=== PATIENT | male | born 1945 | race Two or more races ===

== ENCOUNTER 2016-07-22 21:35 | Emergency (ER) | payer MEDICARE, OTHER ==
[~2016-07-22] VITALS: Ht 170.2 cm; Wt 63.5 kg
[~2016-07-22 21:35] MED LIST: GABA100C PO; HYDR-507 PO; IBUP-785; NAPR500T PO; TRAM50TA PO
[2016-07-22] MEDS ORDERED: ONDANSETRON ODT 4 MG TAB.RAPDIS SL ONE (22:00)
[2016-07-22] MEDS ORDERED: HYDROCODONE/APAP 5-325MG TABLET PO ONE (22:00)
[2016-07-22] MEDS ORDERED: HYDROCODONE/APAP 5-325MG TABLET ONE (22:05)
[2016-07-22] MEDS ORDERED: ONDANSETRON ODT 4 MG TAB.RAPDIS ONE (22:05)
--- NOTE | 2016-07-22 22:50 | NUR ---
Patient discharged to home in stable conditon with son taking Pt home. Written and verbal after care instructions given. Patient verbalizes understanding of instructions. Walked out of ER wit steady gait
[2016-07-22 22:51] VITALS: BP 128/75
== END 2016-07-22 22:51 | disposition home or self-care (01) ==
LOC: ER 21:38
DX: S40.012A Contusion of left shoulder, initial encounter (principal); S20.211A Contusion of right front wall of thorax, initial encounter; I25.2 Old myocardial infarction; M19.90 Unspecified osteoarthritis, unspecified site; W10.0XXA Fall (on)(from) escalator, initial encounter; Y93.89 Activity, other specified; Y99.8 Other external cause status; Y92.89 Other specified places as the place of occurrence of the external cause
CPT/HCPCS: 71010; 73030; 73060; 93005; 99284; A4663; Q0162

== ENCOUNTER 2017-02-05 23:07 | Emergency (ER) | payer MEDICARE, OTHER ==
[~2017-02-05] VITALS: Ht 162.6 cm; Wt 69.9 kg
[2017-02-05] MEDS ORDERED: HYDROCODON-ACETAMINOPHN 10-325 (23:23)
[2017-02-05] MEDS ORDERED: ROSUVASTATIN CALCIUM 20 MG TAB (23:23)
[2017-02-05] MEDS ORDERED: MELOXICAM 7.5 MG TABLET (23:23)
[2017-02-05] MEDS ORDERED: MAG HYDROX/AL HYDROX/SIMETH 30 ML LIQUID UDC ONE (23:42)
[2017-02-05] MEDS ORDERED: LIDOCAINE VISCUS 2% 15 ML UDC ONE (23:42)
[2017-02-05] MEDS ORDERED: KETOROLAC TROMETHAMINE 30 MG INJ IM ONE (23:45)
[2017-02-05 23:55] LABS: BASOPHILS % (AUTO) 0.8 % (0.0-2.0); EOSINOPHILS # (AUTO) 0.2 K/uL (0.0-0.7); EOSINOPHILS % (AUTO) 3.2 % (0.0-7.0); HEMATOCRIT 40.9 % (40-50); HEMOGLOBIN 13.3 G/DL (14.0-18.0); LYMPHOCYTES # (AUTO) 2.1 K/UL (0.8-4.8); MEAN CORPUSCULAR HEMOGLOBIN 27.5 UUG (27.0-31.0); MEAN CORPUSCULAR HGB CONC 33 g/dL (32.0-37.0); MEAN CORPUSCULAR VOLUME 84.6 FL (82.0-92.0); MONOCYTES # (AUTO) 0.5 K/UL (0.1-1.30); MONOCYTES % (AUTO) 8.8 % (0.0-11.0); NEUTROPHILS # (AUTO) 3.2 K/UL (1.8-8.9); NEUTROPHILS % (AUTO) 53.2 % (38.5-71.5); PLATELET COUNT (AUTO) 216 K/UL (150-450); RED BLOOD CELL COUNT(AUTO) 4.84 MIL/UL (4.7-6.1)
[2017-02-05] MEDS ORDERED: KETOROLAC TROMETHAMINE 30 MG INJ ONE (23:56)
[2017-02-06 00:08] LABS: *BILIRUBIN,URIN NEGATIVE (NEGATIVE); *BLOOD, URINE Trace-intact (NEGATIVE); *CLARITY,URINE CLEAR (CLEAR); *COLOR,URINE YELLOW (YELLOW); *KETONES,URINE NEGATIVE (NEGATIVE); *PROTEIN,URINE NEGATIVE (NEGATIVE); *UROBILINOGEN,URINE 0.2 E.U./dl (NORMAL); LEUKOCYTE ESTERASE ,URINE TRACE (NEGATIVE); NITRITE, URINE NEGATIVE (NEGATIVE); PH,URINE 5.5 (5.0-8.0); UGLUCOSE NEGATIVE (NEGATIVE)
[2017-02-06 00:10] LABS: CREATININE 1.3 mg/dL (0.6-1.3); POTASSIUM 3.5 mmol/L (3.5-5.1)
[2017-02-06 00:24] LABS: BACTERIA,URINE NONE SEEN /HPF (NONE SEEN); MUCUS,URINE FEW /LPF (0-FEW); RBC,URINE 0-3 /HPF (0-3); SQUAMOUS EPITHELIAL CELL,UR FEW /HPF (NONE SEEN); WBC,URINE 0-3 /HPF (0-3)
--- NOTE | 2017-02-06 00:30 | NUR ---
PATIENT STATES PAIN IS BETTER 4/10
--- NOTE | 2017-02-06 01:10 | NUR ---
Patient discharged to home in stable conditon WITH FAMILY TAKING PATIENT HOME. Written and verbal after care instructions given. Patient verbalizes understanding of instructions.
[2017-02-06 01:45] VITALS: BP 138/72
== END 2017-02-06 01:20 | disposition home or self-care (01) ==
LOC: ER 23:10
DX: N39.0 Urinary tract infection, site not specified (principal); R31.29 Other microscopic hematuria; I25.2 Old myocardial infarction; M19.90 Unspecified osteoarthritis, unspecified site
CPT/HCPCS: 36415; 85025; A4663; J1885

== ENCOUNTER 2017-02-12 19:32 | Emergency (ER) | payer MEDICARE, OTHER ==
[~2017-02-12] VITALS: Ht 162.6 cm; Wt 65.8 kg
[~2017-02-12 19:32] MED LIST changes: -GABA100C PO; +HYDROCODON-ACETAMINOPHN 10-325; +MELOXICAM 7.5 MG TABLET; -NAPR500T PO; +ROSUVASTATIN CALCIUM 20 MG TAB; -TRAM50TA PO
[2017-02-12] MEDS ORDERED: CEPHALEXIN 500 MG CAPSULE PO (19:50)
[2017-02-12 20:17] LABS: *BILIRUBIN,URIN NEGATIVE (NEGATIVE); *BLOOD, URINE Trace-intact (NEGATIVE); *CLARITY,URINE CLEAR (CLEAR); *COLOR,URINE YELLOW (YELLOW); *KETONES,URINE NEGATIVE (NEGATIVE); *PROTEIN,URINE NEGATIVE (NEGATIVE); *UROBILINOGEN,URINE 0.2 E.U./dl (NORMAL); LEUKOCYTE ESTERASE ,URINE NEGATIVE (NEGATIVE); NITRITE, URINE NEGATIVE (NEGATIVE); UGLUCOSE NEGATIVE (NEGATIVE)
[2017-02-12 20:22] LABS: BACTERIA,URINE NONE SEEN /HPF (NONE SEEN); RBC,URINE 0-3 /HPF (0-3); SQUAMOUS EPITHELIAL CELL,UR NONE SEEN /HPF (NONE SEEN); WBC,URINE 0-3 /HPF (0-3)
[2017-02-12] MEDS ORDERED: PROMETHAZINE HCL 25 MG/1 ML VIAL IM ONE (21:00)
[2017-02-12] MEDS ORDERED: HYDROMORPHONE 1 MG/1 ML DISP.SYRIN IM ONE (21:00)
--- NOTE | 2017-02-12 21:17 | NUR ---
Patient discharged to home in stable conditon. Written and verbal after care instructions given. Patient, and his daughter, verbalize understanding of instructions.
[2017-02-12] MEDS ORDERED: HYDROMORPHONE 2 MG/1 ML DISP.SYRIN ONE (21:19)
[2017-02-12] MEDS ORDERED: PROMETHAZINE HCL 25 MG/1 ML VIAL ONE (21:19)
== END 2017-02-12 21:19 | disposition home or self-care (01) ==
LOC: ER 19:35
DX: M54.9 Dorsalgia, unspecified (principal); I25.2 Old myocardial infarction; M19.90 Unspecified osteoarthritis, unspecified site
CPT/HCPCS: A4663; J1170; J2550

== ENCOUNTER 2017-02-25 15:39 | Emergency (ER) | payer MEDICARE, OTHER ==
[~2017-02-25] VITALS: Ht 162.6 cm; Wt 60.8 kg
[~2017-02-25 15:39] MED LIST changes: +CEPHALEXIN 500 MG CAPSULE PO
--- NOTE | 2017-02-25 18:04 | NUR ---
DR GORMAN AT THE BEDSIDE FOR EVAL AND EXAM.
--- NOTE | 2017-02-25 18:20 | NUR ---
Patient discharged to home in stable conditon. Written and verbal after care instructions given. Patient verbalizes understanding of instructions.
[2017-02-25 18:21] VITALS: BP 129/89
== END 2017-02-25 18:23 | disposition home or self-care (01) ==
LOC: ER 15:41
DX: S50.862A Insect bite (nonvenomous) of left forearm, initial encounter (principal); I25.2 Old myocardial infarction; E78.5 Hyperlipidemia, unspecified; M19.90 Unspecified osteoarthritis, unspecified site; W57.XXXA Bitten or stung by nonvenomous insect and other nonvenomous arthropods, initial encounter; Y93.89 Activity, other specified; Y92.89 Other specified places as the place of occurrence of the external cause; Y99.8 Other external cause status
CPT/HCPCS: 99283; A4663

== ENCOUNTER 2017-04-30 19:03 | Emergency (ER) | payer MEDICARE, OTHER ==
[~2017-04-30] VITALS: Ht 160 cm; Wt 61.2 kg
[2017-04-30] MEDS ORDERED: SULFAMETH/TRIMETH 800/160 MG TABLET PO ONE (19:45)
[2017-04-30] MEDS ORDERED: PIPERACILLIN SODIUM/TAZOBACTAM 3.375 G in IV DEXTROSE 5% 50 ML IV ONE (19:45)
[2017-04-30 20:09] LABS: BASOPHILS % (AUTO) 0.6 % (0.0-2.0); EOSINOPHILS # (AUTO) 0.2 K/uL (0.0-0.7); EOSINOPHILS % (AUTO) 4.1 % (0.0-7.0); HEMATOCRIT 42.6 % (36.7-47.1); HEMOGLOBIN 14.4 g/dL (12.5-16.3); LYMPHOCYTES # (AUTO) 1.4 K/uL (20.0-40.0); LYMPHOCYTES % (AUTO) 26.4 % (20.5-51.5); MEAN CORPUSCULAR HEMOGLOBIN 28.3 uug (23.8-33.4); MEAN CORPUSCULAR HGB CONC 34 g/dL (32.5-36.3); MEAN CORPUSCULAR VOLUME 83.6 fL (73.0-96.2); MONOCYTES # (AUTO) 0.4 K/uL (2.0-10.0); NEUTROPHILS # (AUTO) 3.3 K/uL (1.8-8.9); NEUTROPHILS % (AUTO) 60.9 % (38.5-71.5); PLATELET COUNT (AUTO) 200 K/uL (152-348); RED BLOOD CELL COUNT(AUTO) 5.09 MIL/uL (4.06-5.63); WHITE BLOOD COUNT (AUTO) 5.4 K/uL (3.6-10.2)
[2017-04-30 20:18] LABS: CREATININE 1.5 mg/dL (0.6-1.3)
[2017-04-30] MEDS ORDERED: SULFAMETH/TRIMETH 800/160 MG TABLET ONE (20:28)
[2017-04-30] MEDS ORDERED: PIPERACILLIN/TAZOBACTAM/D5W 50 ML IV ONE (20:28)
[2017-04-30 20:29] LABS: BILIRUBIN,DIRECT 0.1 mg/dL (0.0-0.2); BILIRUBIN,TOTAL 0.3 mg/dL (0.2-1.0); TOTAL PROTEIN, SERUM 7.8 g/dL (6.4-8.2)
[2017-04-30] MEDS ORDERED: IBUPROFEN 600 MG TABLET PO ONE (21:00)
[2017-04-30] MEDS ORDERED: ONDANSETRON ODT 4 MG TAB.RAPDIS SL ONE (21:00)
[2017-04-30] MEDS ORDERED: HYDROCODONE/APAP 5-325MG TABLET PO ONE (21:00)
--- NOTE | 2017-04-30 21:05 | NUR ---
Patient discharged to home in stable conditon. Written and verbal after care instructions given. Patient verbalizes understanding of instructions. Ambulated from ER with stable gait. All belongings with patient. patient will be driven home by taxi. peripheral IV removed prior to dischrage.
[2017-04-30 21:07] VITALS: BP 133/75
[2017-04-30] MEDS ORDERED: IBUPROFEN 600 MG TABLET ONE (21:17)
[2017-04-30] MEDS ORDERED: HYDROCODONE/APAP 5-325MG TABLET ONE (21:17)
[2017-04-30] MEDS ORDERED: ONDANSETRON ODT 4 MG TAB.RAPDIS ONE (21:17)
== END 2017-04-30 21:07 | disposition home or self-care (01) ==
LOC: ER 19:04
DX: L03.113 Cellulitis of right upper limb (principal); I25.2 Old myocardial infarction; E78.5 Hyperlipidemia, unspecified; M19.90 Unspecified osteoarthritis, unspecified site; Z90.49 Acquired absence of other specified parts of digestive tract
CPT/HCPCS: 36415; 80048; 80076; 85025; 85730; 87040 ×2; 96365; 99284; A4663; J2543; Q0162

== ENCOUNTER 2017-08-22 20:36 | Emergency (ER) | payer MEDICARE, OTHER ==
[~2017-08-22] VITALS: Ht 165.1 cm; Wt 60.8 kg
--- NOTE | 2017-08-22 22:00 | NUR ---
DR JOY MADE PATIENT AWARE OF TEST RESULTS.
[2017-08-22 22:30] VITALS: BP 144/77
--- NOTE | 2017-08-22 22:30 | NUR ---
Patient discharged to home in stable conditon. Written and verbal after care instructions given. Patient and daughter verbalizes understanding of instructions.
== END 2017-08-22 22:30 | disposition home or self-care (01) ==
LOC: ER 20:38
DX: S92.321A Displaced fracture of second metatarsal bone, right foot, initial encounter for closed fracture (principal); S92.331A Displaced fracture of third metatarsal bone, right foot, initial encounter for closed fracture; E78.5 Hyperlipidemia, unspecified; I25.2 Old myocardial infarction; M19.90 Unspecified osteoarthritis, unspecified site; W18.30XA Fall on same level, unspecified, initial encounter; Y93.89 Activity, other specified; Y92.89 Other specified places as the place of occurrence of the external cause; Y99.8 Other external cause status
CPT/HCPCS: 73630; A4663

== ENCOUNTER 2019-03-27 18:44 | Emergency (ER) | payer MEDICARE, OTHER ==
[~2019-03-27] VITALS: Ht 152.4 cm; Wt 59.0 kg
[2019-03-27] MEDS ORDERED: AZIT500T PO (18:53)
--- NOTE | 2019-03-27 19:21 | NUR ---
Patient discharged to home in stable conditon. Written and verbal after care instructions given. Patient verbalizes understanding of instructions. Walked out of ER with no distress noted.
== END 2019-03-27 19:23 | disposition home or self-care (01) ==
LOC: ER 18:46
DX: R05 Cough (principal); I25.2 Old myocardial infarction; E78.5 Hyperlipidemia, unspecified; Z90.49 Acquired absence of other specified parts of digestive tract; Z79.899 Other long term (current) drug therapy; Z79.2 Long term (current) use of antibiotics
CPT/HCPCS: 71045; A4663

== ENCOUNTER 2024-10-27 16:56 | Emergency (ER) | payer MEDICARE, OTHER ==
[~2024-10-27] VITALS: Ht 167.6 cm; Wt 64.4 kg
[~2024-10-27 16:56] MED LIST changes: +AZIT500T PO; -CEPHALEXIN 500 MG CAPSULE PO; -HYDR-507 PO; -HYDROCODON-ACETAMINOPHN 10-325; -IBUP-785; -MELOXICAM 7.5 MG TABLET
[2024-10-27 17:42] LABS: PLATELET COUNT (AUTO) 281 K/uL (152-348); RED BLOOD CELL COUNT(AUTO) 4.93 MIL/uL (4.06-5.63); RED CELL DISTRIBUTION WIDTH 13.8 % (12.1-16.2); WHITE BLOOD COUNT (AUTO) 5.8 K/uL (3.6-10.2)
[2024-10-27] MEDS ORDERED: ASPIRIN 81 MG TAB.CHEW ONE (17:43)
[2024-10-27] MEDS: ASPIRIN 81 MG TAB.CHEW PO ONE (17:44)
[2024-10-27 17:50] LABS: CREATININE 1.2 mg/dL (0.6-1.3); SODIUM SERUM 138 mmol/L (136-145); UREA NITROGEN, BLOOD 21 mg/dL (7-18)
[2024-10-27] MEDS ORDERED: DEXL60CA3 PO (17:50)
[2024-10-27] MEDS ORDERED: ROSU20TA2 PO (17:50)
[2024-10-27] MEDS ORDERED: ESCI20TA PO (17:50)
[2024-10-27] MEDS ORDERED: OLME20TA13 PO (17:50)
[2024-10-27] MEDS ORDERED: CEFU500T66 PO (17:50)
[2024-10-27] MEDS ORDERED: GABA100C PO (17:50)
[2024-10-27] MEDS ORDERED: HYDR-501 PO (19:02)
[2024-10-27 19:12] VITALS: BP 139/77; O2SAT 98
== END 2024-10-27 19:13 | disposition home or self-care (01) ==
LOC: ER 17:01
DX: R07.89 Other chest pain (principal); L98.8 Other specified disorders of the skin and subcutaneous tissue; I25.2 Old myocardial infarction; M19.90 Unspecified osteoarthritis, unspecified site; E78.5 Hyperlipidemia, unspecified; Z79.899 Other long term (current) drug therapy; Z90.49 Acquired absence of other specified parts of digestive tract; Z87.2 Personal history of diseases of the skin and subcutaneous tissue; W57.XXXA Bitten or stung by nonvenomous insect and other nonvenomous arthropods, initial encounter; Y93.89 Activity, other specified; Y92.89 Other specified places as the place of occurrence of the external cause; Y99.8 Other external cause status
CPT/HCPCS: 36415; 71045; 83735; 84484; 85025; A4606; A4663